=== PATIENT | female | born 1970 | race Two or more races ===

== ENCOUNTER 2016-06-12 06:45 | Inpatient (IN) | payer MEDICAID ==
[2016-06-12] MEDS ORDERED: ONDANSETRON 4 MG/2ML 2 ML VIAL ONE (07:08)
[2016-06-12] MEDS ORDERED: ALBUTEROL NEB 2.5 MG/3 ML VIAL.NEB NEB ONE ×2 (07:29→09:24)
[2016-06-12 07:37] LABS: ABSOLUTE NEUTROPHIL COUNT 5.4 K/mm3 (1.8-7.7); BASO % 0.3 % (0.2-1.0); HEMATOCRIT 33.1 % (37.0-47.0); IMM NEUT% 0.5 % (0-1); LYMPH # 0.3 (1.0-4.8); LYMPH % 5.3 % (15-45); MEAN CELL VOLUME 81.5 fl (81.0-99.0); MEAN CORPUSCULAR HEMOGLOBIN 24.6 pg (27.0-31.0); MEAN CORPUSCULAR HGB CONC 30.2 g/dl (33.0-37.0); MEAN PLATELET VOLUME 9.2 fl (7.4-10.4); MONO # 0.5 (0.0-0.8); MONO % 8.6 % (4-12); NEUT % 85.3 % (43-75); PLATELET COUNT 297 K/mm3 (130-400)
[2016-06-12 07:47] LABS: ALB/GLOB RATIO 1.2 (>1.0); ALBUMIN 3.3 gm/dL (3.5-5.7); CALCIUM 8.1 mg/dL (8.6-10.3)
--- NOTE | 2016-06-12 08:06 | RAD ---
Exam: Two-view chest COMPARISON: None INDICATION: Cough and fever for one week. FINDINGS: AP and lateral views of the chest were obtained. There is cardiomegaly and pulmonary vascular congestion. No interstitial disease is seen to suggest pulmonary edema. There is thickening of the fissures without pleural effusion. There is no focal airspace disease. Bones of the chest wall within normal limits. IMPRESSION: No radiographic evidence of pneumonia. Cardiomegaly and pulmonary vascular congestion, correlate for any evidence of pulmonary venous hypertension/early CHF.
[2016-06-12] MEDS ORDERED: SODIUM CHLORIDE 0.9% 1,000 ML ONE (08:19)
[2016-06-12] MEDS ORDERED: AZITHROMYCIN 250 MG TABLET ONE (08:19)
[2016-06-12] MEDS ORDERED: KETOROLAC TROMETHAMINE 30 MG/ML 1 ML VIAL ONE (08:19)
[2016-06-12] MEDS ORDERED: ACETAMINOPHEN 500 MG TABLET ONE (09:29)
[2016-06-12] MEDS ORDERED: MAGNESIUM HYDROXIDE 30 ML UDCUP PO PRN (11:22)
[2016-06-12] MEDS ORDERED: BLISTEX LIPSTICK 1 EACH TP PRN (11:22)
[2016-06-12] MEDS ORDERED: SODIUM CHLORIDE 0.9% 100 ML IV PRN (11:22)
[2016-06-12] MEDS ORDERED: BISACODYL 10 MG SUP PR PRN (11:22)
[2016-06-12] MEDS ORDERED: BISACODYL 5 MG TABLET.EC PO PRN (11:22)
[2016-06-12 12:18] VITALS: BMI 45.0
[2016-06-12 12:28] LABS: URINE BILIRUBIN NEGATIVE (NEGATIVE); URINE BLOOD NEGATIVE (NEGATIVE); URINE GLUCOSE (UA) NEGATIVE (NEGATIVE); URINE LEUKOCYTE ESTERASE NEGATIVE (NEGATIVE); URINE NITRITE NEGATIVE (NEGATIVE); URINE PROTEIN NEGATIVE (NEGATIVE); URINE UROBILINOGEN NORMAL (0-1 mg/dl)
[2016-06-12 12:31] LABS: URINE APPEARANCE CLEAR; URINE COLOR YELLOW
[2016-06-12 12:37] LABS: URINE BACTERIA RARE; URINE EPITHELIAL CELLS 0-1 /hpf; URINE RBC 0 /hpf; URINE WBC NEG /hpf
[2016-06-12 12:39] LABS: AMPHETAMINES/METHAMPHETAMINES POSITIVE (NEGATIVE); COCAINE NEGATIVE (NEGATIVE); MARIJUANA NEGATIVE (NEGATIVE); METHADONE NEGATIVE (NEGATIVE); OPIATES NEGATIVE (NEGATIVE); TRICYCLIC ANTIDEPRESSANTS NEGATIVE (NEGATIVE)
[2016-06-12] MEDS: ACETAMINOPHEN 325 MG TABLET PO PRN (15:04)
[2016-06-12] MEDS: ENOXAPARIN SODIUM 40 MG/0.4 ML SYRINGE SUB-Q SCH (15:05)
[2016-06-12] MEDS: MENTHOL/CETYLPYRD 1 EACH LOZENGE PO PRN (15:13)
--- NOTE | 2016-06-12 16:50 | HP ---
FAVIAN GRAVES STEPHENIE [id number] CHIEF COMPLAINT: Cough and fever. HISTORY OF PRESENT ILLNESS: The patient is a 45-year-old female with a past medical history significant for chronic congestive heart failure, chronic essential hypertension, morbid obesity and diabetes, off medications. She presented to the [facility] Emergency Department, brought by her friends in a private vehicle, with concerns about fever and cough. Her symptoms have been present for the past week and do not show signs of improvement. Her cough is productive of discolored sputum. She has had some substernal chest pain, worse with coughing. She has had worsening swelling, which has been generalized in the last three days. REVIEW OF SYSTEMS: Significant for chills in the last week. No documented fever. Nasal congestion. No sore throat. No ear pain. She has had the cough and dyspnea as I mentioned above, and chest pain as mentioned above. She has had some intermittent wheezing as well. She has had no nausea, vomiting, diarrhea, constipation or abdominal pain. No arthralgias. No urinary complaints. No headaches, fainting, blackouts or seizures. Review of systems is otherwise negative. PAST MEDICAL HISTORY: A little difficult to assess. The patient is extremely somnolent and difficult to get a history from, but reports a history of hypertension, diabetes, possible h/o CAD/OK with no prior angiogram, congestive heart failure and history of noncompliance with her medications. She has a possible history of mental illness including depression. She is currently homeless. She states she gets her medical care through the emergency department and does not have a primary care provider. She reports a hospitalization years ago at [facility], records not available. PAST SURGICAL HISTORY: Significant for a tonsillectomy. ALLERGIES: She reports allergies to: 1. Penicillin. 2. Rocephin. 3. Tramadol. CURRENT MEDICATIONS: None. FAMILY HISTORY: Significant for a mother who had diabetes and cirrhosis of the liver. Father of a heroin overdose and had hypertension. SOCIAL HISTORY: She is single and has no children. She is homeless. She has one brother and one sister who she is estranged from. Her parents are . She has limited social support. She denied alcohol or illicit drug use to me, but reported some illicit drug use to the staff, but was not specific. Her urine drug screen is positive for methamphetamines. She smoked a pack a day of tobacco since the age of 16, totaling about [id number]. She does not have a primary care provider. PHYSICAL EXAMINATION: VITAL SIGNS: Blood pressure 173/89. Respirations 28. Pulse 128. Temperature 99.9. Oxygen saturations were 95% in the emergency department, but during her period of monitoring in the emergency department she did have oxygen saturations drop down as low as 78% on room air and a fever up to 102.2 degrees, with a heart rate of 122. Her body mass index is 45.0 and weight is 119 kilograms. GENERAL: A morbidly obese and very somnolent female in no acute respiratory distress. HEENT: Pupils equal, round and reactive to light. Extraocular movements are intact. No oral lesions are present. She does have a little bit of periorbital edema. NECK: Supple, without lymphadenopathy or thyromegaly. LUNGS: Notable for scattered wheezes. CARDIOVASCULAR: Reveals a regular rate and rhythm, without a murmur. ABDOMEN: Obese, soft, nontender and nondistended, with positive bowel sounds. EXTREMITIES: Shows 2+ pitting edema to the knees. Dorsalis pedis pulses are 2+ bilaterally. SKIN: Warm, dry and intact. NEUROLOGIC: Exam is otherwise nonfocal. LABS: Her CBC shows a white count of 6.3, hemoglobin of 10.0 and platelet count of 297,000. Differential shows 85% neutrophils and 5% lymphocytes. Lactate was normal at 1.4. Chemistry profile notable for a sodium of 135, potassium 3.8, carbon dioxide 27, BUN of 9, creatinine 0.7 and glucose 124. Liver function tests are normal. Troponin-I was 0.06, in the borderline range. Albumin was 3.3 and globulin was 2.7. B-type natriuretic peptide was elevated at 366. TSH level was 1.5. Urinalysis was unremarkable. Urine drug screen notable for methamphetamine positive. Influenza A and B screens were negative. IMAGING: Chest x-ray showed evidence of some cardiomegaly and pulmonary vascular congestion, but no infiltrates. EKG: A 12-lead EKG shows sinus tachycardia. No acute ST or T-wave changes. ASSESSMENT: 1. The patient has acute bronchitis, suspect bacterial component with a COPD exacerbation. 2. She has morbid obesity. 3. Acute on chronic biventricular congestive heart failure based on her history and echo performed today showing a left ventricular ejection fraction of 40%, moderate left ventricular hypertrophy and moderate pulmonary hypertension. 4. She has hypoxia, unclear etiology, suspect she may have obstructive sleep apnea given her morbid obesity. PLAN: She is admitted to the Med-Surg Unit. She will be given oxygen as needed for oxygen saturations under 88% and nebulizer treatments with albuterol every four hours as needed. She will be treated for bronchitis with Zithromax in the form of 500 mg by mouth daily for three days. Further treatment will depend on her hospital course. VTE risk is moderate. She is treated with Lovenox for prophylaxis. We will get [facility] [employer] assistance because of the patient's homeless status, drug abuse and lack of social support, with history of depression.
[2016-06-12] MEDS ORDERED: ASPIRIN (UNCOATED) 325 MG TABLET PO ONE (17:32)
[2016-06-12] MEDS ORDERED: CARVEDILOL 3.125 MG TABLET PO ONE (17:32)
[2016-06-12] MEDS: DOCUSATE SODIUM 100 MG CAPSULE PO SCH (20:27)
[2016-06-12] MEDS: CARVEDILOL 3.125 MG TABLET PO SCH (20:28)
[2016-06-13] MEDS: MENTHOL/CETYLPYRD 1 EACH LOZENGE PO PRN (00:08)
[2016-06-13] MEDS: ACETAMINOPHEN 325 MG TABLET PO PRN ×3 (00:18→16:43)
[2016-06-13] MEDS: ALBUTEROL NEB 2.5 MG/3 ML VIAL.NEB NEB PRN ×2 (00:18→08:15)
[2016-06-13 06:41] LABS: BASO % 0.2 % (0.2-1.0); EOS % 0.2 % (0.9-2.9); HEMOGLOBIN 8.8 gm/l (12.0-16.0); LYMPH % 20.9 % (15-45); MEAN CELL VOLUME 81.5 fl (81.0-99.0); MEAN CORPUSCULAR HEMOGLOBIN 24.7 pg (27.0-31.0); MEAN CORPUSCULAR HGB CONC 30.3 g/dl (33.0-37.0); MEAN PLATELET VOLUME 9.3 fl (7.4-10.4); MONO # 0.6 (0.0-0.8); MONO % 12.8 % (4-12); NEUT % 65.9 % (43-75); PLATELET COUNT 263 K/mm3 (130-400)
[2016-06-13 08:03] VITALS: BP 140/88
[2016-06-13] MEDS ORDERED: FLU VACC 2016-17 (36MO-64Y)/PF 60 MCG/0.5 ML SYRINGE IM V ONE (09:00)
[2016-06-13] MEDS ORDERED: ASPIRIN (ENTERIC COATED) 325 MG TABLET.EC PO SCH (09:00)
[2016-06-13] MEDS ORDERED: PNEUMOCOCCAL 23-VAL P-SAC VAC 0.5 ML VIAL SUB-Q V ONE (09:00)
[2016-06-13] MEDS: DOCUSATE SODIUM 100 MG CAPSULE PO SCH (10:56)
[2016-06-13] MEDS: CARVEDILOL 3.125 MG TABLET PO SCH (10:56)
[2016-06-13] MEDS ORDERED: AZITHROMYCIN 250 MG TABLET PO SCH (11:30)
[2016-06-13] MEDS: ENOXAPARIN SODIUM 40 MG/0.4 ML SYRINGE SUB-Q SCH (13:12)
--- NOTE | 2016-06-13 14:24 | DS ---
Katharina Farmer [id number] DATE OF ADMISSION: June 12, 2016 DATE OF DISCHARGE: June 13, 2016 DISCHARGE DIAGNOSES: 1. Acute bacterial bronchitis with chronic obstructive pulmonary disease exacerbation complicated by hypoxia which is transient. 2. Morbid obesity. 3. Suspected obstructive sleep apnea. 4. Possible obesity hypoventilation syndrome. 5. She does have a history of acute on chronic biventricular congestive heart failure off medications. 6. There is also evidence of ongoing methamphetamine abuse. 7. Morbid obesity. TO SUMMARIZE THE ADMISSION AND HOSPITAL COURESE: The patient is a 45-year-old female who presented to [facility] Emergency Department with complaints of fever, cough, dyspnea. Workup in the emergency department showed no evidence of an acute pneumonia. Influenza screen was negative. The patient was felt to have a bacterial bronchitis. She was treated with Zithromax. She did have some transient hypoxemia during her sleep felt to be related to sleep apnea. She remained medically stable throughout the night and was felt to be stable for discharge. She was seen and evaluated by social media content specialist and their working on arrangements for follow up and assist her in getting her medications filled. Also discussed resources for drug and alcohol treatment with the patient who expressed an interest in quitting the use of methamphetamines. Discussed follow up at the [facility] as well. DISCHARGE MEDICATIONS: Included: 1. Atenolol 50 mg by mouth daily. 2. Enteric coated aspirin 325 mg by mouth daily. 3. Zithromax 500 mg daily for 2 more days. 4. Lasix 20 to 40 mg daily as needed for swelling. 5. Albuterol HFA inhaler 1 to 2 puffs every four hours as needed for wheezing. PHYSICAL EXAMINATION: VITALS: At discharge temperature 98.0, pulse 101, blood pressure 140/88, respirations 18, oxygen saturation 95% on room air. Body mass index 45.4, weight is 120.1 kg. GENERAL: This is an obese female in no acute distress. HEENT: Unremarkable. LUNGS: Reveal scattered wheezes. CARDIOVASCULAR: Reveals a regular rate and rhythm without a murmur. ABDOMEN: Obese, soft, nontender, nondistended with positive bowel sounds. EXTREMITIES: Show 1+ pitting edema in both lower extremities. JOB: [id number]
== END 2016-06-13 17:00 | disposition home or self-care (01) | DRG 192 ==
LOC: ED 06:45 → MS 09:49
PROVIDERS: ADMIT Family Medicine; ATTEND Family Medicine
DX: J44.0 Chronic obstructive pulmonary disease with (acute) lower respiratory infection (principal); J20.9 Acute bronchitis, unspecified; I51.7 Cardiomegaly; I11.0 Hypertensive heart disease with heart failure; I50.9 Heart failure, unspecified; E11.9 Type 2 diabetes mellitus without complications; F17.210 Nicotine dependence, cigarettes, uncomplicated; F15.10 Other stimulant abuse, uncomplicated; I49.5 Sick sinus syndrome; E66.01 Morbid (severe) obesity due to excess calories; R09.02 Hypoxemia; G47.33 Obstructive sleep apnea (adult) (pediatric)